=== PATIENT | male | born 1995 | race Caucasian/White ===

== ENCOUNTER 2021-10-18 21:55 | Emergency (ER) | payer OTHER ==
[2021-10-18] MEDS ORDERED: KETAMINE 100 MG/ML (5ML VIAL) ONE (22:34)
== END 2021-10-18 23:44 ==
LOC: NAV ERS 21:55
DX: S43.015A Anterior dislocation of left humerus, initial encounter (principal); W18.2XXA Fall in (into) shower or empty bathtub, initial encounter
CPT/HCPCS: 23650; 99152; G0390

== ENCOUNTER 2021-10-26 02:18 | Emergency (ER) | payer OTHER ==
[2021-10-26] MEDS ORDERED: Lidocaine 1% (PF) 30 ML VIAL ONE (02:54)
== END 2021-10-26 04:03 ==
LOC: NAV ERS 02:18
DX: S43.015A Anterior dislocation of left humerus, initial encounter (principal); X58.XXXA Exposure to other specified factors, initial encounter
CPT/HCPCS: 23650; J2001